=== PATIENT | female | born 1965 | race Caucasian/White ===

== ENCOUNTER 2019-04-18 11:43 | Observation (INO) | payer OTHER ==
[~2019-04-18] VITALS: Ht 177.8 cm; Wt 95.0 kg
[2019-04-18] MEDS ORDERED: FENTANYL PF 100 MCG/2ML ONE ×3 (12:19→15:09)
[2019-04-18] MEDS ORDERED: MIDAZOLAM 1 MG/ML, 2ML ONE (12:19)
[2019-04-18 12:45] VITALS: BP 126/86
[2019-04-18] MEDS: LACTATED RINGERS 1,000 ML IV SCH ×2 (12:55→13:12)
[2019-04-18] MEDS ORDERED: SCOPOLAMINE PATCH, 1.5MG PATCH.TD72 TD ONE (13:00)
[2019-04-18] MEDS ORDERED: GABAPENTIN 300 MG CAPSULE PO ONE (13:00)
[2019-04-18] MEDS ORDERED: ACETAMINOPHEN 500 MG TABLET PO ONE (13:00)
[2019-04-18] MEDS ORDERED: LIDOCAINE-MPF 1%, 2ML INFIL ONE (13:00)
[2019-04-18] MEDS ORDERED: DIAZEPAM 5 MG TABLET PO ONE (13:00)
[2019-04-18] MEDS ORDERED: SERT50TA PO (13:05)
[2019-04-18] MEDS ORDERED: EPHEDRINE 50 MG/ML, 1ML ONE (13:35)
[2019-04-18] MEDS ORDERED: LIDOCAINE-MPF 2% ,5ML ONE (13:35)
[2019-04-18] MEDS ORDERED: HYDROmorphone 2 MG/ML, 1ML IVPush PRN (14:00)
[2019-04-18] MEDS ORDERED: OXYcodone 5 MG/5 ML ORAL.SOL UDC PO PRN (14:00)
[2019-04-18] MEDS ORDERED: LORazepam 2 MG/ML, 1ML IVPush PRN (14:00)
[2019-04-18] MEDS ORDERED: FENTANYL PF 100 MCG/2ML IV PRN (14:00)
[2019-04-18] MEDS ORDERED: PROMETHAZINE 25 MG SUPP PR PRN (14:00)
[2019-04-18] MEDS ORDERED: PROMETHAZINE 25 MG/ML, 1ML IV PRN (14:00)
[2019-04-18] MEDS ORDERED: ONDANSETRON ODT 8 MG PO PRN (14:00)
[2019-04-18] MEDS ORDERED: ONDANSETRON 2MG/ML, 2ML IV PRN ×2 (14:00→18:30)
[2019-04-18] MEDS ORDERED: NEOSTIGMINE 1 MG/ML, 10ML ONE (16:07)
[2019-04-18] MEDS ORDERED: PROPOFOL 10 MG/ML, 20ML ONE (16:07)
[2019-04-18] MEDS ORDERED: DEXAMETHASONE 4 MG/ML, 1ML ONE (16:07)
[2019-04-18] MEDS ORDERED: GLYCOPYRROLATE 0.2MG/1ML, 5ML ONE ×2 (16:07)
[2019-04-18] MEDS ORDERED: SUCCINYLCHOLINE 20 MG/ML, 10ML ONE (16:07)
[2019-04-18] MEDS ORDERED: ROCURONIUM 10MG/ML,5ML ONE (16:07)
[2019-04-18] MEDS ORDERED: SUGAMMADEX 200 MG/2 ML IVPush ONE (16:07)
[2019-04-18] MEDS ORDERED: ONDANSETRON 2MG/ML, 2ML ONE (16:07)
[2019-04-18] MEDS ORDERED: CEFAZOLIN 1,000 MG ONE (16:07)
[2019-04-18] MEDS ORDERED: HYDROmorphone 1 MG/ML, 1ML INJ IM PRN (18:30)
[2019-04-18 19:25] VITALS: BP 112/60
[2019-04-18] MEDS: KETOROLAC 30 MG/1 ML IV SCH (20:29)
[2019-04-18] MEDS: OXYcodone/APAP 5/325MG TABLET PO PRN (20:30)
[2019-04-19 00:15] VITALS: BP 131/63
[2019-04-19] MEDS: OXYcodone/APAP 5/325MG TABLET PO PRN ×2 (00:30→08:06)
[2019-04-19] MEDS: KETOROLAC 30 MG/1 ML IV SCH (04:30)
[2019-04-19 06:52] VITALS: BP 136/62
[2019-04-19] MEDS ORDERED: LORazepam 2 MG/ML, 1ML ONE (08:25)
[2019-04-19] MEDS ORDERED: LORazepam 2 MG/ML, 1ML IVPush ONE (08:30)
[2019-04-19] MEDS ORDERED: SERTRALINE 50MG TABLET PO SCH (09:00)
[2019-04-19] MEDS ORDERED: OXYC5TAB3 PO (10:22)
== END 2019-04-19 11:00 | disposition home or self-care (01) ==
LOC: OUT 11:43 → 4NE 17:56 → ORIP 19:18 → OUT 19:22 → 4NE 21:01 → DCLOUNGE 04-19 10:32
PROVIDERS: ADMIT Orthopaedic Surgery; ATTEND Orthopaedic Surgery
DX: M75.101 Unspecified rotator cuff tear or rupture of right shoulder, not specified as traumatic (principal); M19.019 Primary osteoarthritis, unspecified shoulder; M65.9 Synovitis and tenosynovitis, unspecified; M75.51 Bursitis of right shoulder; Z79.899 Other long term (current) drug therapy
CPT/HCPCS: 24340; 29826; 29827; 96374; 96375; 96376; C1713; G0378; J0690; J1100; J1885; J2060; J2250; J2405; J2704; J3010; J3490; J7120; J2710; J0330

== ENCOUNTER 2020-06-27 20:59 | Emergency (ER) | payer OTHER ==
[~2020-06-27] VITALS: Ht 170.2 cm; Wt 84.0 kg
[~2020-06-27 20:59] MED LIST: OXYC5TAB98 PO; SERT50TA PO
--- NOTE | 2020-06-27 21:33 | NUR ---
PATIENT AMBULATED TO BATHROOM WITH STANDBY ASSIST. IN NAD. CALL BORDEN IN REACH. SAFETY MAINTAINED. BOTH SIDE RAILS UP ON GURNEY. VS REMAIN STABLE
--- NOTE | 2020-06-27 21:48 | NUR ---
PATIENT FOUND GETTING OOB PUTTING SHIRT ON WITH ONE SIDE RAIL DOWN. RN IN TO ROOM AND PATIENT STATES "IM TRYING TO ESCAPE". RN REASSURED PATIENT OF REASON WHY SHE IS HERE AND WHAT HAPPENED TODAY. PATIENT APOLOGIZES AND THEN ASKS "WHY DO I HAVE THIS?" POINTING TO IV IN L HAND. I EXPLAINED PURPOSE FOR THIS AND PATIENT APOLOGIZES AGAIN. PATIENT FOLLOWS COMMANDS AND COOPERATIVE WITH GETTING BACK INTO BED. BILATERAL RAILS UP AGAIN AND WARM BLANKET PROVIDED AND TV TURNED ON. CALL BORDEN IN REACH. SAFETY MAINTAINED. WILL CONTINUE TO MONITOR
--- NOTE | 2020-06-27 22:20 | NUR ---
PATIENT ATTEMPTING TO GET OOB AGAIN WITH BOTH SIDE RAILS UP IN [facility]. SHE STATES "I JUST DONT FEEL LIKE I NEED TO BE HERE". PATIENT ASKED TO GET BACK IN BED MULTIPLE TIMES BY THIS RN AND SHE NEEDED REDIRECTION WITH THIS CONVERSATION
--- NOTE | 2020-06-27 23:00 | NUR ---
PATIENT TO CT. REQUESTS SOMETHING "FOR ALCOHOL WITHDRAWALS". PATIENT REPORTS THAT SHE HAS BEEN HEAVILY DRINKING FOR THE PAST 3 DAYS AND REQUESTING ATIVAN. PATIENT REPORTS BEING "A CASUAL OCCASSIONAL DRINKER" AND STATES "YEAH, THATS WHAT A SOCIALLY ACCEPTABLE ANSWER IS". I REASSURED PATIENT THAT WE ARE NOT HERE TO HORSE IDENTIFIER HER BUT TO HELP HER.
--- NOTE | 2020-06-27 23:15 | NUR ---
DR. ARREOLA NOTIFIED OF PATIENT'S REQUEST FOR MEDICATION FOR "ALCOHOL WITHDRAWLS". PATIENT PRESENTING WITH NO CURRENT SYMPTOMS OF WITHDRAWALS OTHER THAN ANXIOUS BEHAVIOR AND IMPULSES TO LEAVE
--- NOTE | 2020-06-27 23:52 | NUR ---
DISCHARGE INSTRUCTIONS REVIEWED WITH PATIENT. NO ATIVAN GIVEN TO PATIENT DUE TO FALL RISK AND DISCHARGING HOME. PATIENT HAS STEADY GAIT WITH AMBULATING TO REGISTRATION DESK. SHE IS REPEATING REQUESTS FOR "PAYMENT PAPERS". ALL PERSONAL BELONGINGS WITH PATIENT ON DC. IV REMOVED PER DC PROTOCOL.
[2020-06-27 23:53] VITALS: BP 121/86
== END 2020-06-27 23:56 | disposition home or self-care (01) ==
LOC: ED 23:12
DX: S00.03XA Contusion of scalp, initial encounter (principal); S09.90XA Unspecified injury of head, initial encounter; F10.220 Alcohol dependence with intoxication, uncomplicated; Z87.891 Personal history of nicotine dependence; W18.39XA Other fall on same level, initial encounter; Y93.89 Activity, other specified; Y92.89 Other specified places as the place of occurrence of the external cause; Y99.8 Other external cause status; Y90.0 Blood alcohol level of less than 20 mg/100 ml
CPT/HCPCS: 70450; 72125; 99285

== ENCOUNTER 2020-06-29 14:24 | Emergency (ER) | payer OTHER ==
[~2020-06-29] VITALS: Ht 170.2 cm; Wt 86.0 kg
--- NOTE | 2020-06-29 14:53 | NUR ---
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 PHONE NUMBER IS [phone].
[2020-06-29] MEDS ORDERED: ONDANSETRON ODT 4 MG ONE (15:22)
[2020-06-29] MEDS ORDERED: ONDANSETRON ODT 4 MG PO ONE (15:30)
[2020-06-29 15:49] LABS: BASOPHILS % (AUTO) 0 % (0-1); EOSINOPHILS % (AUTO) 0 % (1-7); LYMPHOCYTES % (AUTO) 16 % (22-44); MEAN CORPUSCULAR HEMOGLOBIN 32.1 pg (27.0-34.8); MEAN CORPUSCULAR HGB CONC 34.3 g/dL (32.4-35.8); MEAN PLATELET VOLUME 7.8 fL (7.4-10.4); MONOCYTES % (AUTO) 12 % (2-9); NEUTROPHILS % (AUTO) 71 % (42-75); PLATELET COUNT 122 x10^3/uL (130-400); RED BLOOD COUNT 4.35 x10^6/uL (3.82-5.3); RED CELL DISTRIBUTION WIDTH 14.9 % (9.6-15.2)
[2020-06-29 16:00] LABS: ALANINE AMINOTRANSFERASE 33 U/L (12-78); ALBUMIN 4.3 g/dL (3.4-5.0); ANION GAP 12 mmol/L (5-15); CALCIUM 9.4 mg/dL (8.5-10.1); CHLORIDE 100 mmol/L (98-107); CREATININE 0.95 mg/dL (0.55-1.02)
[2020-06-29 16:02] LABS: ALKALINE PHOSPHATASE 90 U/L (45-117); BILIRUBIN,TOTAL 1.6 mg/dL (0.2-1.0); TOTAL PROTEIN 7.9 g/dL (6.4-8.2)
[2020-06-29 16:12] LABS: INTERNATIONAL NORMALIZED RATIO 1.02 (0.93-1.1); PROTHROMBIN TIME 10.9 Seconds (9.6-11.5)
[2020-06-29 16:24] LABS: MD NO
--- NOTE | 2020-06-29 16:33 | NUR ---
ALL RESULTS ARE BACK AT THIS TIME. CHART UP FOR RECHECK.
[2020-06-29 17:10] VITALS: BP 144/82
--- NOTE | 2020-06-29 17:45 | NUR ---
PT TRANSFERRED TO INDEPENDENTLY WITH A COUPLE STEPS.
== END 2020-06-29 17:46 | disposition home or self-care (01) ==
LOC: ED 16:44
DX: S06.0X9A Concussion with loss of consciousness of unspecified duration, initial encounter (principal); D69.6 Thrombocytopenia, unspecified; R05 Cough; I21.9 Acute myocardial infarction, unspecified; R11.2 Nausea with vomiting, unspecified; W00.0XXA Fall on same level due to ice and snow, initial encounter; Y93.01 Activity, walking, marching and hiking; Y92.098 Other place in other non-institutional residence as the place of occurrence of the external cause; Y99.8 Other external cause status
CPT/HCPCS: 36415; 70450; 71045; 80053; 85025; 85610; 93005; 99285; Q0162